=== PATIENT | female | born 1945 | race Two or more races ===

== ENCOUNTER 2016-12-10 10:28 | Outpatient (CLI) | payer MEDICARE, MEDICAID ==
[2016-12-10 11:07] LABS: BASOPHILS % (AUTO) 0.9 % (0.0-2.0); EOSINOPHILS % (AUTO) 2.5 % (0.0-3.0); LYMPHOCYTES % (AUTO) 35.4 % (20.0-45.0); MEAN CORPUSCULAR HEMOGLOBIN 30.3 PG (27.0-31.0); MEAN CORPUSCULAR HGB CONC 32.6 G/DL (32.0-36.0); MEAN CORPUSCULAR VOLUME 93 FL (80-99); MEAN PLATELET VOLUME 12.5 FL (6.5-10.1); NEUTROPHILS % (AUTO) 56.2 % (45.0-75.0); PLATELET COUNT 226 K/UL (150-450); RED BLOOD COUNT 5.15 M/UL (4.20-5.40); RED CELL DISTRIBUTION WIDTH 13.1 % (11.6-14.8)
[2016-12-10 11:13] LABS: ALANINE AMINOTRANSFERASE 35 U/L (3-33); ANION GAP 14 (5-15); ASPARTATE AMINO TRANSFERASE 32 U/L (5-40); CALCIUM 9.7 mg/dL (8.6-10.2); CARBON DIOXIDE 28 mEQ/L (20-30); CHLORIDE 98 mEQ/L (98-107); CHOLESTEROL 223 mg/dL (< 200); CHOLESTEROL/HDL RATIO 3.7 (3.3-4.4); CREATININE 0.7 mg/dL (0.5-0.9); GLOMERULAR FILTRATION RATE > 60 mL/min (>60); HEMOLYSIS 6; LDL CHOLESTEROL (CALC.) 138 mg/dL (60-99); PHOSPHORUS 2.8 mg/dL (2.5-4.8); POTASSIUM 4.2 mEQ/L (3.4-4.9); SODIUM 140 mEQ/L (135-145); TOTAL PROTEIN 7.7 g/dL (6.6-8.7)
[2016-12-10 11:15] LABS: HEMOGLOBIN A1C 6.7 % (< 6.0)
== END 2016-12-10 11:58 | disposition home or self-care (01) ==
LOC: LAB 10:28
DX: I10 Essential (primary) hypertension (principal); E11.9 Type 2 diabetes mellitus without complications; E66.9 Obesity, unspecified
CPT/HCPCS: 36415; 80053; 80061; 82306; 82746; 83036; 83735; 84100; 84443; 85025

== ENCOUNTER 2016-12-11 09:56 | Outpatient (CLI) | payer MEDICARE, MEDICAID ==
--- NOTE | 2016-12-11 16:16 | Diagnostic Imaging Report ---
Indication: SCREEN Technique: Bilateral Craniocaudal and mediolateral oblique views were obtained. Comparison: None. Patient reports prior mammogram. This will serve as a new baseline mammogram Findings: The breasts demonstrate scattered fibroglandular densities. No parenchymal asymmetry nor architectural distortion. There is a focal asymmetry measuring 6 mm in the deep right breast on the oblique view. Is questionably located laterally on the craniocaudal view, which would place it at the 9:30 position. No dominant masses nor suspicious clustered microcalcifications. No skin thickening nor nipple retraction. No axillary adenopathy. No significant interim change. Impression: Focal asymmetry right breast, possibly the 9:30 position. Recommend further evaluation with spot compression mammography and ultrasound. BI-RADS category 2-benign.
== END 2016-12-11 11:26 | disposition home or self-care (01) ==
LOC: MAMMO 09:56
DX: Z12.31 Encounter for screening mammogram for malignant neoplasm of breast (principal); N64.89 Other specified disorders of breast
CPT/HCPCS: 77067

== ENCOUNTER → 2016-12-18 | Outpatient (CLI) | payer MEDICARE, MEDICAID ==
--- NOTE | 2016-12-18 15:14 | Diagnostic Imaging Report ---
Indication: Abnormality demonstrated on recent screening mammography Technique: Craniocaudal and mediolateral oblique spot compression views, rolled craniocaudal views, straight mediolateral view a focused ultrasound of the right breast Comparison: Reference made to screening mammogram 12/11/2016 Findings: The deep right breast lesion described on prior screening mammogram is only equivocally demonstrated on the straight mediolateral view. It is not visible on is either the spot compression views, nor is it visible on the rolled craniocaudal views. In the far lateral right breast, ultrasound demonstrates a hypoechoic versus anechoic 8 x 2 x 8 millimeter nodule with equivocal distal acoustic enhancement, no definite central hilar flow Impression: Previously demonstrated deep possibly lateral right breast density seen on screening mammography is not evident on the followup diagnostic images, with the possible exception of the straight mediolateral view. 8 x 2 x 8 mm nodule seen sonographically in the far outer right breast. Based on the sonographic appearance, suspect this represents either a lymph node or a cyst, although other solid lesion cannot be excluded. Uncertain as to whether this represents the original mammographic abnormality, or represents a very high deep axillary tail node visible on the original screening mediolateral oblique view. In any case, findings are deemed likely benign. Short interval six-month sonography and mammography is recommended for further evaluation. This recommendation was described to the patient. BI-RADS category 3-probably benign
== END | disposition home or self-care (01) ==
LOC: MAMMO 11:18
DX: N63 Unspecified lump in breast (principal)
CPT/HCPCS: 76641; G0206